=== PATIENT | male | born 1980 | race Caucasian/White ===

== ENCOUNTER 2024-11-02 16:01 | Emergency (ER) | payer OTHER ==
[~2024-11-02] VITALS: Ht 175.3 cm; Wt 100.0 kg
[2024-11-02 16:07] VITALS: BP 149/87; PULSE 105; RESP 16; TEMP 98.3; O2SAT 98
== END 2024-11-02 18:07 | disposition left against medical advice (07) ==
LOC: EMS 16:01
DX: M79.605 Pain in left leg (principal); M79.604 Pain in right leg; Z53.21 Procedure and treatment not carried out due to patient leaving prior to being seen by health care provider